=== PATIENT | female | born 1980 | race Caucasian/White ===

== ENCOUNTER 2019-12-30 12:38 | Outpatient (CLI) | payer OTHER, SELFPAY ==
--- NOTE | ~2019-12-30 | MR_ITS ---
EXAMINATION: MR elbow LT wo con, MR elbow RT wo con DATE: 12/30/2019 14:10 INDICATION: Medial epicondylitis at both elbows presenting with bilateral medial elbow pain. TECHNIQUE: Magnetic resonance imaging (MRI) of the left elbow was performed without intravenous contr ast. Sequences included coronal, axial, and sagittal PD-weighted FS FSE and coronal, axial, and sagit maris PD-weighted FSE. COMPARISON: Left elbow radiographs dated 04/21/2019 FINDINGS: Osseous/other: Normal alignment. Normal marrow signal with no marrow edema, fracture, osteochondral lesion or abnor mal marrow replacing process. Mild osteoarthritis along the ulnotrochlear articulation at both the le ft and right elbow characterized by mild nonuniform cartilage loss with smooth appearing chondral alison face and without degenerative subarticular changes. Normal and symmetric muscle bulk and signal at th e distal upper arm and proximal forearms with no evident denervation changes. Tendons: Triceps, biceps brachii and brachialis tendons are normal in both the left and right. Common flexor tendon wad is normal on both the left and right. The common extensor tendon wad is normal on both the left and right. Ligaments: The medial and lateral collateral ligament complexes are normal on both the left and right. Cubital tunnel: Bilateral normal variant anconeus epitrochlearis is positioned posterior to the cubital tunnel and on both the left and right this appears to compress and flatten the ulnar nerve against the posterior m argin of the medial epicondyles. Relatively symmetric appearance to the left and right ulnar nerves b oth which thickened both proximal and distal to the cubital tunnel with possible small intramural T2 hyperintense lesions suggestive of nerve entrapment. Fluid: Physiologic amount of fluid at both elbow joints. IMPRESSION: 1. 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 Correlate clinically for sensory and motor change of ulnar neuropathy. 2. 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 Reviewed, dictated and finalized at location A. NESS TECHNOLOGY ANALYST IMPRESSION: 1. 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 Correlate clinically for sensory and motor change of ulnar neuropath y. 2. Relatively symmetric mild osteoarthritis along the bilateral ulnotrochlear a rticulations.
== END 2019-12-30 12:39 | disposition home or self-care (01) ==
LOC: ANHIMG 12:54
PROVIDERS: PCP Family Medicine; Visit Provider Nurse Practitioner Family
DX: M25.522 Pain in left elbow (principal); M77.02 Medial epicondylitis, left elbow; M25.521 Pain in right elbow; M77.01 Medial epicondylitis, right elbow
CPT/HCPCS: 73221

== ENCOUNTER 2020-01-18 13:39 | Outpatient (CLI) | payer OTHER, SELFPAY ==
--- NOTE | ~2020-01-18 | XR_ITS ---
EXAMINATION: XR lumbar spine 2-3V DATE: 01/18/2020 14:31 INDICATION: Low back pain TECHNIQUE: Anteroposterior and lateral views of the lumbar spine, and cone-down lateral view of the l umbosacral junction were obtained. COMPARISON: 01/14/2018 FINDINGS: There is no fracture, dislocation, or subluxation. The vertebral body heights, alignment, a nd intervertebral disc spaces are normal. The paravertebral soft tissues are unremarkable. A moderate volume of colonic stool is present. Cholecystectomy clips are noted in the right upper quadrant. IMPRESSION: 1. Unremarkable lumbar spine. Reviewed, dictated and finalized at location A. IC PHYSICS PROFESSOR
--- NOTE | ~2020-01-18 | XR_ITS ---
EXAMINATION: XR hip BI wo pelvis INDICATION: Bilateral hip pain TECHNIQUE: Three views of each hip are obtained. COMPARISON: 11/25/2016 FINDINGS: Bone alignment is normal. There is no fracture. The soft tissues are unremarkable. A modera te volume of colonic stool is present. IMPRESSION: 1. Normal hip radiographs. Reviewed, dictated and finalized at location A. ING MECHANIC IMPRESSION: 1. Normal hip radiographs.
== END 2020-01-18 13:40 | disposition home or self-care (01) ==
LOC: ANHIMG 13:53
PROVIDERS: PCP Family Medicine; Visit Provider Family Medicine
DX: M25.552 Pain in left hip (principal); M25.551 Pain in right hip; M54.5 Low back pain
CPT/HCPCS: 72100; 73521

== ENCOUNTER 2020-04-09 08:36 | Outpatient (CLI) | payer OTHER, SELFPAY ==
--- NOTE | 2020-04-09 11:15 | NEURO_ITS ---
Patient Number: [id number] Impression: # Complains of pain and numbness of hands. # No Carpal Tunnel Syndrome. # Bilateral mild ulnar neuropathy across the elbows, right more than left. # Normal needle/EMG exam. Nerve Conduction Studies Anti Sensory Summary Table Stim Site NR Peak (ms) P-T Amp (?V) Site1 Site2 Delta-P (ms) Dist (cm) Kai (m/s) Left Median Anti Sensory (2-3nd Digit) Wrist 2.9 96.5 Wrist 2-3nd Digit 2.9 14.0 48 Wrist 3.1 74.7 Wrist 2-3nd Digit 2.9 14.0 48 Right Median Anti Sensory (2-3nd Digit) Wrist 2.9 92.7 Wrist 2-3nd Digit 2.9 14.0 48 Wrist 3.0 67.3 Wrist 2-3nd Digit 2.9 14.0 48 Left Radial Anti Sensory (Base 1st Digit) Wrist 2.6 34.1 Wrist Base 1st Digit 2.6 0.0 Right Radial Anti Sensory (Base 1st Digit) Wrist 2.8 36.4 Wrist Base 1st Digit 2.8 0.0 Left Ulnar Anti Sensory (5th Digit) Wrist 2.6 77.6 Wrist 5th Digit 2.6 14.0 54 Right Ulnar Anti Sensory (5th Digit) Wrist 2.6 65.0 Wrist 5th Digit 2.6 14.0 54 Motor Summary Table Stim Site NR Onset (ms) O-P Amp (mV) Site1 Site2 Delta-0 (ms) Dist (cm) Kai (m/s) Left Median Motor (Abd Poll Brev) Wrist 3.0 5.2 Elbow Wrist 5.0 30.0 60 Elbow 8.0 3.4 Right Median Motor (Abd Poll Brev) Wrist 3.0 5.5 Elbow Wrist 4.8 27.0 56 Elbow 7.8 2.4 Left Ulnar Motor (Abd Dig Minimi) Wrist 2.6 6.1 A Elbow Wrist 5.1 29.0 57 A Elbow 7.7 5.5 B Elbow Wrist 3.7 22.0 59 B Elbow 6.3 3.3 Right Ulnar Motor (Abd Dig Minimi) Wrist 2.8 5.9 A Elbow Wrist 5.7 28.0 49 A Elbow 8.5 5.0 B Elbow Wrist 3.5 22.0 63 B Elbow 6.3 3.5 F Wave Studies NR F-Lat (ms) L-R F-Lat (ms) Left Median (Mrkrs) (Abd Poll Brev) 26.08 0.58 Right Median (Mrkrs) (Abd Poll Brev) 25.50 0.58 Left Ulnar (Mrkrs) (Abd Dig Min) 26.68 0.16 Right Ulnar (Mrkrs) (Abd Dig Min) 26.84 0.16 EMG Side Muscle Nerve Root Ins Act Fibs Amp Dur Recrt Comment Right 1stDorInt Ulnar C8-T1 Nml Nml Nml Nml Nml Right Ext Indicis Radial (Post Int) C7-8 Nml Nml Nml Nml Nml Right Ext Digitorum Radial (Post Int) C7-8 Nml Nml Nml Nml Nml Right BrachioRad Radial C5-6 Nml Nml Nml Nml Nml Right PronatorTeres Median C6-7 Nml Nml Nml Nml Nml Right Abd Poll Brev Median C8-T1 Nml Nml Nml Nml Nml Left 1stDorInt Ulnar C8-T1 Nml Nml Nml Nml Nml Left Ext Indicis Radial (Post Int) C7-8 Nml Nml Nml Nml Nml Left Ext Digitorum Radial (Post Int) C7-8 Nml Nml Nml Nml Nml Left BrachioRad Radial C5-6 Nml Nml Nml Nml Nml Left PronatorTeres Median C6-7 Nml Nml Nml Nml Nml Left Abd Poll Brev Median C8-T1 Nml Nml Nml Nml Nml Left ABD Dig Min Ulnar C8-T1 Nml Nml Nml Nml Nml Right ABD Dig Min Ulnar C8-T1 Nml Nml Nml Nml Nml Right Biceps Musculocut C5-6 Nml Nml Nml Nml Nml Right Triceps Radial C6-7-8 Nml Nml Nml Nml Nml Right Deltoid Axillary C5-6 Nml Nml Nml Nml Nml Left Biceps Musculocut C5-6 Nml Nml Nml Nml Nml Left Triceps Radial C6-7-8 Nml Nml Nml Nml Nml Left Deltoid Axillary C5-6 Nml Nml Nml Nml Nml MTDD
== END 2020-04-09 08:37 | disposition home or self-care (01) ==
PROVIDERS: PCP Family Medicine; Visit Provider Orthopaedic Surgery
DX: G56.23 Lesion of ulnar nerve, bilateral upper limbs (principal)
CPT/HCPCS: 95886; 95911

== ENCOUNTER 2020-04-16 08:29 | Outpatient (CLI) | payer OTHER, SELFPAY ==
--- NOTE | ~2020-04-16 | MR_ITS ---
EXAMINATION: MR pelvis wo/w con DATE: 04/16/2020 09:38 INDICATION: Neurofibromatosis type 1. Bilateral hip pain. Low back pain. TECHNIQUE: Magnetic resonance imaging (MRI) of the pelvis was performed without and with 10 mL MultiH ance intravenous contrast. Sequences included axial and coronal T1-weighted FSE and T2-weighted FS FS E, axial T1-weighted FS FSE, and postcontrast axial and coronal T1-weighted FS FSE. COMPARISON: Pelvis and hip radiographs 01/18/2020 FINDINGS: Bone alignment is normal. No fracture. The hip joint spaces are normal. No hip joint effusion. The gl uteal tendons and iliopsoas tendons are normal. There is mild tendinopathy of left hamstring origin. There is a 10 mm mass in the right ischiorectal fossa. There are a few subcutaneous masses bilaterall y measuring up to 7 mm. IMPRESSION: 1. Scattered masses measuring up to 10 mm, consistent with neurofibromas. Reviewed, dictated and finalized at location A.
[2020-04-16 09:15] LABS: Estimated Glomerular Filt Rate > 60
== END 2020-04-16 08:30 | disposition home or self-care (01) ==
PROVIDERS: PCP Family Medicine; Visit Provider Orthopaedic Surgery
DX: M25.559 Pain in unspecified hip (principal); Q85.00 Neurofibromatosis, unspecified
CPT/HCPCS: 36415; 72197; A9577

== ENCOUNTER 2020-04-18 12:53 | Outpatient (CLI) | payer OTHER, SELFPAY ==
--- NOTE | ~2020-04-18 | MM_ITS ---
EXAMINATION: MM diagnostic cassius BI w pallavi HISTORY: Six-month follow-up for probably benign breast lumps TECHNIQUE: Craniocaudal, mediolateral, and mediolateral oblique 3-D tomosynthesis images of the breas ts were performed and synthetic 2-D images were generated. CAD analysis was submitted and interpreted . COMPARISON: MRI, 10/06/2019,02/09/2019, 01/20/2018, 05/22/2013, 07/29/2011 BREAST PARENCHYMAL COMPOSITION: The breasts are heterogeneously dense, which may obscure small masses . FINDINGS: There is no evidence of suspicious mass, calcification, or architectural distortion in eit her breast to suggest malignancy. There has been no suspicious interval change. A biopsy marker is noted in the left breast. IMPRESSION: 1. No mammographic evidence of malignancy. 2. Recommend routine screening mammography in one year. BI-RADS Category 1: Negative Reviewed, dictated and finalized at location A.
== END 2020-04-18 12:54 | disposition home or self-care (01) ==
PROVIDERS: PCP Family Medicine; Visit Provider Obstetrics & Gynecology
DX: R92.8 Other abnormal and inconclusive findings on diagnostic imaging of breast (principal)
CPT/HCPCS: 77062; 77066; G0279

== ENCOUNTER 2020-08-16 08:22 | Outpatient (CLI) | payer OTHER, SELFPAY ==
[2020-08-16 08:40] LABS: Hemoglobin 13.6 g/dL (12.0-15.0)
== END 2020-08-16 08:23 | disposition home or self-care (01) ==
LOC: ANHSURGERY 08:25
PROVIDERS: Anesthesiology; PCP Family Medicine; Visit Provider Orthopaedic Surgery
DX: D64.9 Anemia, unspecified (principal)
CPT/HCPCS: 36415; 85014; 85018

== ENCOUNTER 2020-08-17 00:42 | Outpatient (CLI) | payer OTHER, SELFPAY ==
[2020-08-17 17:48] LABS: SARS-CoV-2 RNA PCR Negative
== END 2020-08-17 00:43 | disposition home or self-care (01) ==
LOC: ANHCOVIDDT 00:42
PROVIDERS: Anesthesiology; PCP Family Medicine; Visit Provider Orthopaedic Surgery
DX: Z01.812 Encounter for preprocedural laboratory examination (principal); Z20.828 Contact with and (suspected) exposure to other viral communicable diseases
CPT/HCPCS: 87635; C9803; U0003

== ENCOUNTER 2020-08-20 02:34 | Day surgery (SDC) | payer OTHER, SELFPAY ==
[2020-08-05 14:34] VITALS: BMI 24.7
[2020-08-20] VITALS (9 sets, daily range): BP systolic 112–129; BP diastolic 65–85; PULSE 86–98; RESP 13–18; TEMP 36.1; O2SAT 98–100
--- NOTE | 2020-08-20 07:28 | WPDHPUPDATE1 ---
History and Physical Update Update Date/Time: 08/20/20 07:28 History and Physical has been reviewed, including an updated exam of the patient. There are NO changes in the patient's condition. Risks, benefits, and alternatives have been discussed and questions answered. Patient agrees to proceed with procedure.
[2020-08-20] MEDS: CELECOXIB 200 MG CAPSULE PO (10:05)
[2020-08-20] MEDS: ACETAMINOPHEN 500 MG TABLET 1000 MG PO (10:05)
--- NOTE | 2020-08-20 10:39 | WPDANESEPPF ---
Anes - Initial Pre Proc Eval Procedure: Operation Date: 08/20/20 11:30 Proposed Procedures p Right Cubital Tunnel Release, Excision Neurofibroma [employer] - Satya Sellers MD Date/Time: 08/20/20 10:39 Surgeon: Satya Sellers MD Pre Op Diagnosis: right cubital tunnel syndrome w/neurofibroma Patient Data Age: 40 Gender: F Height: 5 ft 3 in Weight: 64.8 kg Allergies Allergy/AdvReac Type Severity Reaction Status Date / Time azithromycin Allergy Intermediate Rash Verified 08/20/20 09:44 hydromorphone Allergy Intermediate Itching Verified 08/20/20 09:44 meperidine Allergy Unknown Unknown Verified 08/20/20 09:44 Home Medications Medication Instructions Recorded Confirmed Type acetaminophen 325 mg tablet 325 mg PO Q6H PRN 10/10/19 08/05/20 History ascorbic acid (vitamin C) 500 mg 500 mg PO DAILY 10/10/19 08/05/20 History tablet cholecalciferol (vitamin D3) 100 4,000 unit PO DAILY 10/10/19 08/05/20 History mcg (4,000 unit) capsule ibuprofen 800 mg tablet 800 mg PO TID PRN 10/10/19 08/05/20 History magnesium 200 mg tablet 200 mg PO DAILY 10/10/19 08/05/20 History pseudoephedrine HCl 30 mg tablet 30 mg PO Q4-6H PRN 10/10/19 08/05/20 History docusate sodium [Colace] 100 mg PO DAILY 08/05/20 08/05/20 History duloxetine [Cymbalta] 30 mg PO DAILY 08/05/20 08/05/20 History duloxetine [Cymbalta] 60 mg PO DAILY 08/05/20 08/05/20 History morphine 15 mg PO BID 08/05/20 08/20/20 History morphine See Rx Instructions .ROUTE .COMPLEX 08/05/20 08/20/20 History nadolol 40 mg PO DAILY 08/05/20 08/20/20 History naratriptan 2.5 mg PO BID PRN 08/05/20 08/20/20 History Patient hx anesthesia problems: post op nausea/vomiting Family hx anesthesia problems: none PMFSH Social History Social History Smoking status: Never smoker Alcohol intake: current Alcohol use details: once or twice a year Living arrangements: with family Gender identity (if verbalized by the patient): Female Sexual Orientation (if Verbalized by the Patient): Straight or Heterosexual Spiritual care concerns: No Anes - Eval Final PreProcedure Day of Procedure 08/20/20 10:39 Patient weight: normal Heart: regular rate and rhythm Lungs: clear to auscultation Airway: Mallampati scale class II Neurological: alert and oriented Last oral intake: >/= 8 hours ASA classification: II Emergent: no Anesthetic plan: proceed Anesthesia type and monitoring: general LMA and standard monitoring Informed Consent: The patient's anesthetic plan and its attendant risks and benefits were discussed with the patient/family/POA. Questions were solicited and answers provided to the satisfaction of the patient/family/POA.
[2020-08-20] MEDS: SCOPOLAMINE 1.5 MG PATCH TRANSDERM (10:49)
[2020-08-20] MEDS: ceFAZolin 2 GM/D5W 50 ML 2 GM/50 ML BAG IVPB (10:54)
[2020-08-20] MEDS: LACTATED RINGERS 1,000 ML 30 ML IV CONT ×2 (10:56→12:04)
--- NOTE | 2020-08-20 11:56 | PM.PROC ---
Procedure Note - Detailed Date of procedure: 08/20/20 Pre-op diagnosis: right cubital tunnel syndrome w/neurofibroma same Post-op diagnosis: same Procedure performed: RIGHT CUBITAL TUNNEL RELEASE WITH EXCISION OF NEUROFIBROMA RIGHT HAND Description of procedure: THE PATIENT WAS TAKEN TO THE OR AN INTUBATED. THE RIGHT UPPER EXTREMITY WAS PREPPED AND DRAPED IN THE STERILE FASHION. THE TORNEQUET WAS INFLATED. THE INCISION WAS MADE IN BETWEEN THE MEDIAL EPICONDYLE AND THE OLECRANON TIP DOWN THROUGH THE SUBCUTANEOUS TISSUES. THE ULNAR NERVE WAS PALPATED. THE FASCIA OVER THE CUBITAL TUNNEL WAS INCISED UNTIL THE ULNAR NERVE WAS VISUALIZED. THE RELEASE CONTINUED BOTH PROXIMALLY TO THE TRICEPS MUSCLE AND DISTALLY TO THE FLEXOR CARPI ULNARIS FASCIA. THE WOUND WAS IRRIGATED AND THE BLEEDERS WERE CAUTERIZED. THE SUBCUTANEOUS LAYER WAS APPROXIMATED WITH 3-0 VICRYL SUTURE. THE A 3-0 QUIL WAS USED TO APPROXIMATE THE SUB CUTICULAR SURFACE THEN DERMABOND AND STERI STRIPS WERE PLACED ON THE SKIN. NEXT THE MASS ON THE RIGHT HAND WAS PALPATED ON THE DORSUM OF THE 3RD WEB SPACE. A SMALL INCISION WAS MADE OVER THE SKIN. THE MASS WAS FOUND IN THE SUBCUTANEOUS LAYER AND IT WAS EXCISED IN ITS ENTIRETY. IT APPEARED TO A NEUROFIBROMA. THE WOUND WAS WASHED AND THE SKIN WAS APPROXIMATED WITH 4-0 NYLON AND STERILE DRESSING WAS PLACED ON BOTH WOUNDS. THE PATIENT WAS EXTUBATED AND SENT TO RECOVERY ROOM. Anesthesia: GLMA Surgeon: Satya Sellers MD Estimated blood loss (mL): 7 Pathology: yes Complications: No immediate complications Condition: stable Disposition: PACU
[2020-08-20] MEDS: oxyCODONE HCL (*CRX) 5 MG TAB IR PO (13:23)
== END 2020-08-20 14:17 | disposition home or self-care (01) ==
PROVIDERS: PCP Family Medicine; Visit Provider Orthopaedic Surgery
PROC: (CPT 64718; principal; 2020-08-20 11:30)
DX: G56.21 Lesion of ulnar nerve, right upper limb (principal); D36.12 Benign neoplasm of peripheral nerves and autonomic nervous system, upper limb, including shoulder
CPT/HCPCS: 64718; 64788; 88304; 88305; A4565; A9270; J0690; J1100; J2250; J2405; J2704; J3010; J7120

== ENCOUNTER 2020-09-01 07:28 | Outpatient (CLI) | payer OTHER, SELFPAY ==
--- NOTE | ~2020-09-01 | MR_ITS ---
EXAMINATION: MR hip RT wo/w con DATE: 09/01/2020 08:58 INDICATION: Right hip pain radiating down the right leg TECHNIQUE: Magnetic resonance imaging (MRI) of the without and with 12 mL Multihance hip was perform ed without intravenous contrast. Sequences included full-field axial PD-weighted FS FSE, T1-weighted FSE and T1-weighted FS FSE, coronal of the pelvis with PD-weighted FS FSE, small field of view of the right hip with axial PD-weighted FS FSE, sagittal PD-weighted FS FSE and coronal PD weighted FS FSE . Additional radial T1-weighted FGR oriented orthogonal to the acetabular rim were obtained for evalu ation of the labrum. Postcontrast small field of view coronal and large field of view of the pelvis a xial T1-weighted FS FSE sequences were obtained. COMPARISON: None FINDINGS: Bones/labrum/cartilage: Alignment is normal. No fracture, avascular necrosis or pathologic marrow replacing process. There i s focal mild increase in size and amorphous increased intrasubstance signal at the posterior superior aspect of the right glenoid labrum best appreciated on the radial images consistent with mild degene ration without a well-defined tear plane. Articular cartilage is normal. Fluid: Symmetric physiologic amount of fluid within both hip joints. Soft tissues: Normal and symmetric muscle bulk and signal in the pelvis and visualized proximal thighs. The iliops oas, gluteal and proximal hamstring tendons are normal. There are multiple scattered T2 hyperintense and enhancing nodules scattered in the subcutaneous tissues and within a few of the muscles consisten t with given history of neurofibromatosis. The largest of these include a 1.6 x 0.9 x 1.3 cm nodule a t the right ischial rectal fossa, a cluster of 3 ovoid nodules together measuring 1.8 x 0.9 x 0.6 cm along the right sciatic nerve just distal to the aortic notch and 3 nodules in the distal left gluteu s nicolás muscle the largest measuring 1.8 x 1.3 x 0.9 cm. There are multiple additional smaller nodu les scattered throughout the subcutaneous fat at the pelvis and proximal thighs. No pathologically en larged pelvic/inguinal lymphadenopathy. A couple tiny T2 hyperintense nonenhancing nabothian cysts at the cervix. Limited evaluation of visceral organs of the pelvis is otherwise unremarkable. IMPRESSION: 1. Multiple scattered small enhancing nodules in the soft tissues of the pelvis and proximal thighs c onsistent with given history of neurofibromatosis. 2. Mild focal degeneration of the posterosuperior glenoid labrum without a clearly defined linear tea r. Reviewed, dictated and finalized at location B. IMPRESSION: 1. Multiple scattered small enhancing nodules in the soft tissues of the pelvis and proximal thighs consistent with given history of neurofibromatosis. 2. Mild focal degeneration of the posterosuperior glenoid labrum without a shaun rly defined linear tear.
[2020-09-01 08:16] LABS: Estimated Glomerular Filt Rate > 60
== END 2020-09-01 07:29 | disposition home or self-care (01) ==
PROVIDERS: PCP Family Medicine; Visit Provider Nurse Practitioner Family
DX: M25.551 Pain in right hip (principal)
CPT/HCPCS: 73723; A9577

== ENCOUNTER → 2021-02-24 13:01 | Outpatient (CLI) | payer MEDICARE, MEDICAID, SELFPAY ==
--- NOTE | ~2021-02-24 | XR_ITS ---
XR foot RT min 3V DATE: 02/24/2021 13:19 INDICATION: Right foot pain, first digit TECHNIQUE: 4 views COMPARISON: 04/11/2011 right foot FINDINGS: No fracture or dislocation, periosteal reaction or bone destruction, radiopaque soft tissue foreign body or subcutaneous emphysema or other soft tissue or bony abnormality is evident. IMPRESSION: Negative Reviewed, dictated and finalized at location A. IMPRESSION: Negative
== END ==
PROVIDERS: PCP Family Medicine; Visit Provider Family Medicine
DX: M79.671 Pain in right foot (principal)
CPT/HCPCS: 73630

== ENCOUNTER 2021-05-06 15:27 | Outpatient (CLI) | payer MEDICARE, MEDICAID, SELFPAY ==
--- NOTE | ~2021-05-06 | MR_ITS ---
EXAMINATION: MR lumbar spine wo/w con EXAM DATE: 05/06/2021 16:31 INDICATION: Spinal stenosis lumbar region w/o neurogenic claudication. Neurofibromatosis type I. TECHNIQUE: Multi-sequential, multiplanar MR images of the lumbar spine were obtained without contrast . Sagittal T1, T2, T2 fat saturation images. Axial T2 weighted images. Axial T1 weighted sequence. Patient was then injected with 12 mL Multihance intravenous contrast and reimaged. Postcontrast axi al and sagittal T1-weighted fat saturation sequences were obtained. Comparison is made to prior exa mination from 08/26/2018. FINDINGS: The vertebral bodies are aligned. There is mild disc disease L2-3 and minimal at L3-4. Sma ll hemangioma superior endplate of L4. The conus medullaris terminates at the L2 level and has normal signal intensity and morphology. Paraspinal soft tissue is unremarkable. Small peripheral nerve zavala th tumors of some of the exiting lumbosacral nerve roots consistent with neurofibromatosis type I, un changed. Some small scattered subcutaneous neurofibromas. Level by level evaluation: T12-L1: Disc does not extend beyond the endplate margin. Facet arthropathy: Minimal. Neural foraminal stenosis: No stenosis. Central canal stenosis: No stenosis. L1-L2: Disc does not extend beyond the endplate margin. Facet arthropathy: Minimal. Neural foraminal stenosis: No stenosis. Central canal stenosis: No stenosis. L2-L3: There is a mild diffuse disc bulge. Facet arthropathy: Mild. Neural foraminal stenosis: No stenosis. Central canal stenosis: No stenosis. L3-L4: There is a minimal diffuse disc bulge. Facet arthropathy: Mild. Neural foraminal stenosis: No stenosis. Central canal stenosis: No stenosis. L4-L5: There is a minimal diffuse disc bulge. Facet arthropathy: Mild to moderate. Neural foraminal stenosis: Minimal bilateral. Central canal stenosis: No stenosis. L5-S1: Disc does not extend beyond the endplate margin. Facet arthropathy: Mild to moderate. Neural foraminal stenosis: No stenosis. Central canal stenosis: No stenosis. IMPRESSION: 1. Mild lumbar spondylosis without significant stenosis. 2. Stigmata of neurofibromatosis type I stable. Reviewed, dictated and finalized at location B.
[2021-05-06 15:59] LABS: Estimated Glomerular Filt Rate > 60
== END 2021-05-06 15:28 | disposition home or self-care (01) ==
PROVIDERS: PCP Family Medicine; Visit Provider Physical Medicine & Rehabilitation Pain Medicine
DX: M47.817 Spondylosis without myelopathy or radiculopathy, lumbosacral region (principal); M48.07 Spinal stenosis, lumbosacral region
CPT/HCPCS: 72158; A9577

== ENCOUNTER → 2023-04-07 19:28 | Outpatient (CLI) | payer MEDICARE, MEDICAID, SELFPAY ==
--- NOTE | ~2023-04-07 | XR_ITS ---
EXAMINATION: XR toe 1st RT min 2V DATE: 04/07/2023 19:50 INDICATION: Right great toe pain post fall TECHNIQUE: Dorsal plantar, lateral and oblique views of the right great toe were obtained. COMPARISON: Right foot radiographs dated 02/24/2021 FINDINGS: Alignment is normal. No fracture. Joint spaces are normal. Soft tissues are unremarkable. IMPRESSION: Negative right great toe radiographs. Reviewed, dictated and finalized at location A.
== END ==
PROVIDERS: PCP Physician Assistant; Visit Provider Physician Assistant
DX: M79.674 Pain in right toe(s) (principal)
CPT/HCPCS: 73660

== ENCOUNTER → 2023-05-27 15:39 | Outpatient (CLI) | payer MEDICARE, MEDICAID, SELFPAY ==
--- NOTE | ~2023-05-27 | XR_ITS ---
Right foot Technique: AP and lateral views were obtained. Clinical History: Injury Findings: No acute fracture or dislocation is seen. Osseous alignment is anatomic. Joint spaces are p reserved without erosive or degenerative change. Soft tissues are unremarkable. Impression: Unremarkable right foot radiographs. Reviewed, dictated and finalized at location . Impression: Unremarkable right foot radiographs.
== END ==
PROVIDERS: PCP Family Medicine; Visit Provider Family Medicine
DX: S99.921A Unspecified injury of right foot, initial encounter (principal); T14.90XA Injury, unspecified, initial encounter
CPT/HCPCS: 73620

== ENCOUNTER 2023-07-09 12:02 | Outpatient (CLI) | payer MEDICARE, MEDICAID, SELFPAY ==
[2023-07-09 12:27] LABS: Basophils Absolute Auto 0.1 K/mm3 (0.0-0.1); Basophils Percent Auto 0.8 % (0.2-1.2); Eosinophils Absolute Auto 0.1 K/mm3 (0-0.3); Eosinophils Percent Auto 1.9 % (0-4.4); Hematocrit 42.7 % (37.0-47.0); Hemoglobin 13.8 g/dL (12.0-15.0); Immature Granulocyte Absolute 0.04 K/mm3 (0.00-0.031); Immature Granulocyte Percent A 0.6 % (0-0.5); Lymphocytes Absolute Auto 1.94 K/mm3 (0.9-3.2); Mean Corpuscular HGB Conc 32.3 g/dl (32-36); Mean Corpuscular Hemoglobin 31.9 pg (26-34); Mean Corpuscular Volume 98.6 fl (80-100); Mean Platelet Volume 9.5 fl (7.4-10.4); Monocytes Absolute Auto 0.5 K/mm3 (0.1-0.6); Monocytes Percent Auto 7.5 % (2.6-8.5); Neutrophils Absolute Auto 4.5 K/mm3 (1.3-6.7); Neutrophils Percent Auto 62.2 % (45.5-73.1); Platelet Count Result 269 k/mm3 (150-375); Red Blood Count 4.33 M/mm3 (4.2-5.4); Red Cell Distribution Width 11.9 % (11.5-14.5); White Blood Count 7.2 K/mm3 (4.5-10.0)
[2023-07-09 12:36] LABS: Iron 149 ug/dL (37-170)
[2023-07-09 12:41] LABS: Alanine Aminotransferase 15 U/L (6-35); Albumin Level 4.3 g/dL (3.5-5.1); Alkaline Phosphatase 28 U/L (38-126); Anion Gap 1 mmol/L (8-16); Aspartate Amino Transferase 19 U/L (14-36); Bilirubin,Total 0.6 mg/dL (0.2-1.3); Blood Urea Nitrogen 16 mg/dL (7-17); Calcium 9.3 mg/dL (8.4-10.2); Carbon Dioxide 30 mmol/L (22-30); Chloride 105 mmol/L (98-107); Estimated Glomerular Filt Rate > 60; Glucose 94 mg/dL (65-110); Sodium 136 mmol/L (137-145)
[2023-07-09 12:46] LABS: Percent Iron Saturation 50 % (20-50)
== END 2023-07-09 12:03 | disposition home or self-care (01) ==
PROVIDERS: PCP Family Medicine; Visit Provider Physician Assistant
DX: R53.83 Other fatigue (principal); D64.9 Anemia, unspecified; I10 Essential (primary) hypertension
CPT/HCPCS: 36415; 80053; 83540; 83550; 85025